=== PATIENT | female | born 1975 | race Two or more races ===

== ENCOUNTER 2019-10-08 13:05 | Outpatient (CLI) | payer BC | END 2019-10-08 23:59 | disposition home or self-care (01) | LOC: CFH 13:05 → EDSTATUS 15:30 → CFH 23:59 | PROVIDERS: ATTEND Physician Assistant | DX: Z12.31 Encounter for screening mammogram for malignant neoplasm of breast (principal); N64.89 Other specified disorders of breast | CPT/HCPCS: 77067 ==

== ENCOUNTER → 2020-10-13 | Outpatient (CLI) | payer BC, OTHER | END | disposition home or self-care (01) | LOC: CFH 15:15 | PROVIDERS: ATTEND Physician Assistant | DX: Z12.31 Encounter for screening mammogram for malignant neoplasm of breast (principal) | CPT/HCPCS: 77063; 77067 ==